=== PATIENT | female | born 2000 | race Two or more races ===

== ENCOUNTER 2024-06-29 11:58 | Outpatient (CLI) | payer OTHER | END 2024-06-29 11:59 | disposition home or self-care (01) | LOC: LAB 11:58 | PROVIDERS: ATTEND Specialist | DX: E03.9 Hypothyroidism, unspecified (principal); E16.2 Hypoglycemia, unspecified; E78.5 Hyperlipidemia, unspecified; E55.9 Vitamin D deficiency, unspecified; Z12.11 Encounter for screening for malignant neoplasm of colon; N91.1 Secondary amenorrhea; E22.1 Hyperprolactinemia; Z11.3 Encounter for screening for infections with a predominantly sexual mode of transmission ==

== ENCOUNTER 2024-07-07 09:54 | Emergency (ER) | payer OTHER ==
[~2024-07-07] VITALS: Ht 162.6 cm; Wt 54.4 kg
[2024-07-07] MEDS ORDERED: CEFTRIAXONE SODIUM 1,000 MG VIAL IM ONE (11:15)
[2024-07-07] MEDS ORDERED: ONDANSETRON HCL 2 MG/ML VIAL IM ONE (11:15)
[2024-07-07] MEDS ORDERED: LORATADINE/PSEUDOEPHEDRINE 1 TAB TAB.SR.24H PO ONE (11:15)
[2024-07-07] MEDS ORDERED: LORATADINE/PSEUDOEPHEDRINE 1 TAB TAB.SR.24H PO STA (11:31)
[2024-07-07] MEDS ORDERED: LORATADINE/PSEUDOEPHEDRINE 1 TAB TAB.SR.12H PO ONE (11:45)
[2024-07-07 11:56] LABS: HEMATOCRIT 37.5 % (36.0-45.00); HEMOGLOBIN 13.1 g/dL (12.0-15.00); MEAN CELL VOLUME 87.8 fL (80.00-100.00); MEAN CORPUSCULAR HEMOGLOBIN 30.6 pg (27.00-32.0); MEAN CORPUSCULAR HGB CONC 34.8 g/dl (32.0-36.0); PLATELET COUNT 254 K/uL (150-450); RED BLOOD COUNT 4.28 M/uL (4.00-6.00); RED CELL DISTRIBUTION WIDTH 13.4 % (11.5-14.5)
[2024-07-07] MEDS ORDERED: ZITHROMAX500 MG PO (13:28)
[2024-07-07] MEDS ORDERED: MEDROLPACK PO (13:28)
[2024-07-07] MEDS ORDERED: PEPCID AC20 MG PO (13:28)
== END 2024-07-07 13:37 | disposition home or self-care (01) ==
LOC: ER 09:54
PROVIDERS: General Practice
DX: J00 Acute nasopharyngitis [common cold] (principal); Z20.822 Contact with and (suspected) exposure to COVID-19

== ENCOUNTER 2024-08-26 08:51 | Emergency (ER) | payer OTHER ==
[~2024-08-26] VITALS: Ht 162.6 cm; Wt 54.4 kg
[~2024-08-26 08:51] MED LIST: MEDROLPACK PO; PEPCID AC20 MG PO; ZITHROMAX500 MG PO
[2024-08-26] MEDS ORDERED: GUAIFENESIN 200 MG/10 ML BLIST.PACK PO ONE ×2 (10:00→10:08)
[2024-08-26 10:58] LABS: HEMATOCRIT 40.8 % (36.0-45.00); HEMOGLOBIN 13.7 g/dL (12.0-15.00); MEAN CELL VOLUME 89.8 fL (80.00-100.00); MEAN CORPUSCULAR HEMOGLOBIN 30.2 pg (27.00-32.0); MEAN CORPUSCULAR HGB CONC 33.7 g/dl (32.0-36.0); PLATELET COUNT 205 K/uL (150-450); RED BLOOD COUNT 4.54 M/uL (4.00-6.00); RED CELL DISTRIBUTION WIDTH 13.1 % (11.5-14.5)
== END 2024-08-26 11:54 | disposition home or self-care (01) ==
LOC: ER 08:53
PROVIDERS: General Practice
DX: B34.9 Viral infection, unspecified (principal); J00 Acute nasopharyngitis [common cold]; Z20.822 Contact with and (suspected) exposure to COVID-19

== ENCOUNTER → 2025-06-11 10:50 | Outpatient (CLI) | payer OTHER ==
[2025-06-11 14:16] LABS: BASO % 0.5 % (0.1-1.2); EOS # 0.28 (0.04-0.54); EOS % 4.6 % (0.7-7.0); LYMPH # 1.89 (1.18-3.74); LYMPH % 31.3 % (19.3-53.1); MEAN PLATELET VOLUME 11.40 fl (9.4-12.4); MONO # 0.64 (0.24-0.82); MONO % 10.6 % (4.7-12.5); NEUT # 3.18 (1.56-6.13); NEUT % 52.8 % (34.0-71.1); RED CELL DISTRIBUTION WIDTH 12.3 % (11.6-14.4)
[2025-06-11 14:38] LABS: COVID-19 AG NEGATIVE (NEGATIVE)
[2025-06-11 15:27] LABS: MYCOPLASMA PNEUMONIAE IGM REACTIVE (NO REACTIVE)
== END | disposition home or self-care (01) ==
LOC: LAB 10:50
DX: A49.3 Mycoplasma infection, unspecified site (principal); B35.4 Tinea corporis; R50.9 Fever, unspecified; Z68.20 Body mass index [BMI] 20.0-20.9, adult